=== PATIENT | female | born 1930 | race Caucasian/White ===

== ENCOUNTER 2017-04-11 16:06 | Inpatient (IN) | payer MEDICARE, MEDICAID ==
[2017-04-11] VITALS (7 sets, daily range): BP systolic 106–144; BP diastolic 51–74
[~2017-04-11] VITALS: Ht 162.6 cm; Wt 87.1 kg
[2017-04-11] MEDS ORDERED: Ipratropium 0.02% Inh Soln 2.5ml UD HHN ONE (16:30)
[2017-04-11] MEDS ORDERED: Azithromycin 500 MG in NS 275 ML IV ONE (16:30)
[2017-04-11] MEDS ORDERED: PredniSONE 20mg tab ORAL ONE (16:30)
[2017-04-11 16:51] LABS: ABG ALLEN TEST POSITIVE; ABG BASE EXCESS 2.5; ABG PCO2 58.3 mmHg (35.0-45.0)
[2017-04-11] MEDS: Albuterol ud Inhalation HHN SCH ×3 (16:55→18:25)
[2017-04-11] MEDS ORDERED: Azithromycin Inj IV ONE (17:14)
[2017-04-11 17:24] LABS: BASOPHILS % (AUTO) 1.4 % (0.0-2.0); EOSINOPHILS % (AUTO) 3.5 % (0.0-3.0); LYMPHOCYTES % (AUTO) 18.1 % (20.0-45.0); MEAN CORPUSCULAR HEMOGLOBIN 32.3 PG (27.0-31.0); MEAN CORPUSCULAR VOLUME 98 FL (80-99); MONOCYTES % (AUTO) 6.1 % (1.0-10.0); PLATELET COUNT 168 K/UL (150-450); RED BLOOD COUNT 4.19 M/UL (4.20-5.40); RED CELL DISTRIBUTION WIDTH 14.3 % (11.6-14.8); WHITE BLOOD COUNT 7.3 K/UL (4.8-10.8)
--- NOTE | 2017-04-11 17:24 | Emergency Room Report ---
History of Present Illness General Chief Complaint: Dyspnea/Respdistress Source: Patient, Family Member, PMD Present Illness HPI This patient has a history of pulmonary fibrosis. She is oxygen dependent at home intermittently. She was sent in by her primary care physician Dr. Lamb. She had been seen at the clinic there and was hypoxemic. She was also intermittently tachycardic. Patient has a history of atrial fibrillation. She is also developed some lower extremity edema. She underwent an echocardiogram and bilateral lower extremity ultrasounds which were unremarkable. She has been short of breath and requiring home oxygen much more often. There has been no fever or chills. No cough or congestion. No new symptoms. Allergies: Coded Allergies: No Known Allergies (Unverified , 04/11/17) Patient History Past Medical History: see triage record, AFib, other - pulmonary fibrosis Social History: Denies: alcohol use, drug use, smoking Reviewed Nursing Documentation: PMH: Agreed, PSxH: Agreed Nursing Documentation-PMH Past Medical History: No History, Except For Review of Systems All Other Systems: negative except mentioned in HPI Physical Exam Vital Signs Date Time Temp Pulse Resp B/P Pulse Ox O2 Delivery O2 Flow Rate FiO2 04/11/17 16:19 98.1 115 24 144/74 91 Nasal Cannula 4.0 Sp02 EP Interpretation: reviewed, normal General Appearance: no apparent distress, alert, GCS 15, non-toxic Head: normocephalic, atraumatic Eyes: bilateral eye PERRL, bilateral eye normal inspection ENT: hearing grossly normal, normal pharynx, no angioedema, normal voice Neck: full range of motion, supple/symm/no masses Respiratory: chest non-tender, lungs clear, normal breath sounds, no respiratory distress, no retraction, no accessory muscle use, speaking full sentences Cardiovascular #1: no edema, tachycardia, irregularly irregular Gastrointestinal: normal bowel sounds, non tender, soft, non-distended, no guarding, no rebound Rectal: deferred Musculoskeletal: back normal, gait/station normal, normal range of motion, non- tender, swelling - 1+pitting edema BLE Neurologic: alert, oriented x3, responsive, motor strength/tone normal, sensory intact, speech normal Psychiatric: judgement/insight normal, memory normal, mood/affect normal, no suicidal/homicidal ideation Skin: normal color, no rash, warm/dry, well hydrated Medical Decision Making Diagnostic Impression: Primary Impression: Pulmonary fibrosis Additional Impression: Hypoxemia ER Course This patient has known pulmonary fibrosis. She has worsening hypoxemia. She is requiring oxygen and normally does not. She was given an albuterol nebulizer treatment. She will be admitted for further pulmonary hygiene, further evaluation and treatment. The patient declined further albuterol nebulizer treatments other than the first one. She does not like having a mask on. She did have intermittent atrial fibrillation with rapid ventricular response. This was primarily after the albuterol nebulizer treatment. She was admitted to telemetry. Labs Test 04/11/17 16:21 04/11/17 17:00 Arterial Blood pH 7.328 (7.350-7.450) Arterial Blood Partial Pressure CO2 58.3 mmHg (35.0-45.0) Arterial Blood Partial Pressure O2 64.0 mmHg (75.0-100.0) Arterial Blood HCO3 29.9 mmol/L (22.0-26.0) Arterial Blood Oxygen Saturation 88.9 % (92.0-98.0) Arterial Blood Base Excess 2.5 Rohit Test Positive White Blood Count 7.3 K/UL (4.8-10.8) Red Blood Count 4.19 M/UL (4.20-5.40) Hemoglobin 13.6 G/DL (12.0-16.0) Hematocrit 41.1 % (37.0-47.0) Mean Corpuscular Volume 98 FL (80-99) Mean Corpuscular Hemoglobin 32.3 PG (27.0-31.0) Mean Corpuscular Hemoglobin Concent 33.0 G/DL (32.0-36.0) Red Cell Distribution Width 14.3 % (11.6-14.8) Platelet Count 168 K/UL (150-450) Mean Platelet Volume 7.0 FL (6.5-10.1) Neutrophils (%) (Auto) 71.0 % (45.0-75.0) Lymphocytes (%) (Auto) 18.1 % (20.0-45.0) Monocytes (%) (Auto) 6.1 % (1.0-10.0) Eosinophils (%) (Auto) 3.5 % (0.0-3.0) Basophils (%) (Auto) 1.4 % (0.0-2.0) Sodium Level 140 mEQ/L (135-145) Potassium Level 4.1 mEQ/L (3.4-4.9) Chloride Level 101 mEQ/L (98-107) Carbon Dioxide Level 30 mEQ/L (20-30) Anion Gap 9 (5-15) Blood Urea Nitrogen 12 mg/dL (7-23) Creatinine 0.8 mg/dL (0.5-0.9) Estimat Glomerular Filtration Rate mL/min (>60) Glucose Level 162 mg/dL (74-106) Calcium Level 8.7 mg/dL (8.6-10.2) Total Bilirubin 0.6 mg/dL (0.0-1.2) Aspartate Amino Transf (AST/SGOT) 22 U/L (5-40) Alanine Aminotransferase (ALT/SGPT) 15 U/L (3-33) Alkaline Phosphatase 39 U/L (35-104) Troponin I < 0.30 ng/mL (<=0.30) Total Protein 6.6 g/dL (6.6-8.7) Albumin 3.8 g/dL (3.5-5.2) Globulin 2.8 g/dL Albumin/Globulin Ratio 1.3 (1.0-2.7) EKG Diagnostic Results Rate: tachycardiac Rhythm: other ST Segments: no acute changes Other Impression Atrial fibrillation Rhythm Strip Diag. Results EP Interpretation: yes Rate: 100's Rhythm: no PVC's, no ectopy, other Other Impression A.fib Chest X-Ray Diagnostic Results Chest X-Ray Diagnostic Results : Chest X-Ray Ordered: Yes # of Views/Limited/Complete: 1 View Indication: Shortness of Breath EP Interpretation: Yes Interpretation: no pneumothorax, other Impression: Other Interpreting ER Provider: Diffuse opacities similar to previous CXR Last Vital Signs Date Time Temp Pulse Resp B/P Pulse Ox O2 Delivery O2 Flow Rate FiO2 04/11/17 16:19 98.1 115 24 144/74 91 Nasal Cannula 4.0 Disposition: ADMITTED INPATIENT Condition: Serious Referrals: SRINIVAS LAMB (PCP) NAOMI MARROQUIN D.O. Apr 11, 2017 17:24
[2017-04-11 17:32] LABS: ALANINE AMINOTRANSFERASE 15 U/L (3-33); ALBUMIN/GLOBULIN RATIO 1.3 (1.0-2.7); ANION GAP 9 (5-15); ASPARTATE AMINO TRANSFERASE 22 U/L (5-40); CALCIUM 8.7 mg/dL (8.6-10.2); CARBON DIOXIDE 30 mEQ/L (20-30); CHLORIDE 101 mEQ/L (98-107); CREATININE 0.8 mg/dL (0.5-0.9); HEMOLYSIS 6; POTASSIUM 4.1 mEQ/L (3.4-4.9); SODIUM 140 mEQ/L (135-145); TOTAL PROTEIN 6.6 g/dL (6.6-8.7); TROPONIN I < 0.30 ng/mL (<=0.30)
--- NOTE | 2017-04-11 17:33 | Consultation ---
Consult Note Consult Note History of Present Illness Hx. Source: patient Primary complaint: FOLLOW UP Duration: several weeks Trend of sx: worsening Fever: none Treatment: see med list Trend of Tx: no notable change Additional HPI: 86 year old female patient presents today for follow up appointment for worsening hypoxemia. Patient reports severe shortness of breath - more than baseline. Also concerned about edema of her feet and ankles. Patient is taking her prescribed medications as directed and is compliant. son denies any changes. no new medications at present. no cough or sputum production Active Medications (reviewed today): PROAIR HFA 108 (90 BASE) MCG/ACT INH AERS (ALBUTEROL SULFATE) inhale 2 puffs by mouth bid VITAMIN D (ERGOCALCIFEROL) 51569 UNIT ORAL CAPS (ERGOCALCIFEROL) 1 tab Qweekly MAALOX MAX SUSP (ALUM & MAG HYDROXIDE-SIMETH SUSP) take 15ml by mouth BID LASIX 40 MG ORAL TABS (FUROSEMIDE) one tab EOD LOVAZA CAPS (LJYCE-1-RNZD ETHYL ESTERS CAPS) take 2 tabs PO BID LINZESS 290 MCG ORAL CAPS (LINACLOTIDE) Take one tablet daily QAM KLOR-CON 8 MEQ ORAL CR-TABS (POTASSIUM CHLORIDE) 1 tab EOD JANUMET 50-1000 MG ORAL TABS (SITAGLIPTIN-METFORMIN HCL) Take one tablet two times daily 5-MTHF 1 MG ORAL CAPS (LEVOMEFOLIC ACID) Take one tablet daily BACLOFEN 10 MG ORAL TABS (BACLOFEN) Take one tablet daily AMARYL 2 MG ORAL TABS (GLIMEPIRIDE) Take one tablet three times daily AZELASTINE HCL 0.1 % NASAL SOLN (AZELASTINE HCL) 2 puffs in each nostril bid BROVANA 15 MCG/2ML INH NEBU (ARFORMOTEROL TARTRATE) inhailation bid BUDESONIDE 0.5 MG/2ML SUSP (BUDESONIDE) two times per day PROTONIX 40 MG EC TAB (PANTOPRAZOLE SODIUM) 1 by mouth daily ADEMPAS 2.5 MG ORAL TABS (RIOCIGUAT) Take one tablet three times daily OPSUMIT 10 MG TABS (MACITENTAN) one tablet daily LOSARTAN POTASSIUM 100 MG TABS (LOSARTAN POTASSIUM) one tab in morning BYSTOLIC 10 MG TABS (NEBIVOLOL HCL) one tab yazan night LEVOTHYROXINE SODIUM 100 MCG TABS (LEVOTHYROXINE SODIUM) 1 tab qd ACETAMINOPHEN-CODEINE #3 300-30 MG TABS (ACETAMINOPHEN-CODEINE) 1 tab qid prn DEXILANT 60 MG CPDR (DEXLANSOPRAZOLE) 1 daily REQUIP 0.5 MG TABS (ROPINIROLE HCL) 1 tab qd NAMENDA 5 MG TABS (MEMANTINE HCL) 1 tab bid NITROSTAT 0.4 MG SUBL (NITROGLYCERIN) 1 SL every 5 min as needed for chest pain , max 3 doses per episode SINGULAIR 10 MG TAB (MONTELUKAST SODIUM) 1 by mouth nightly at bedtime GLUCOPHAGE 500 MG TABS (METFORMIN HCL) Take one tablet daily Current Allergies (reviewed today): No known allergies Past History Past Medical History (reviewed - no changes required): diabetes hypertension arthritis bronchiectasis pulmonary fibrosis pulmonary hypertension, Emphysema obstructive sleep apnea Surgical History (reviewed - no changes required): Left foot big toe surgery Family History (reviewed - no changes required): Father is . Mother is . Social History (reviewed - no changes required): She lives alone in [place]. She has 1 child. She is of [place] descent and is retired. She has no pets. Risk Factors: Smoked Tobacco Use: Never smoker Smokeless Tobacco Use: Never Passive smoke exposure: no Drug use: no HIV high-risk behavior: no Caffeine use: 2 drinks per day Alcohol use: no Seatbelt use: 100 % Sun Exposure: occasionally Review of Systems General: weakness, dizziness, fatigue-resolved Eyes: denies blurring, diplopia, irritation, discharge, vision loss, eye pain, photophobia Ear/Nose/Throat: post nasal drip Cardiovascular: worsening edema Respiratory: See HPI- worsening hypoxemia cough Musculoskeletal: arthritis Date Time Temp Pulse Resp B/P Pulse Ox O2 Delivery O2 Flow Rate FiO2 04/11/17 17:22 125 30 94 Nasal Cannula 2.0 04/11/17 17:00 98.1 109 22 144/74 97 Nasal Cannula 2.0 04/11/17 17:00 109 22 Nasal Cannula 2.0 04/11/17 16:57 92 17 90 Nasal Cannula 2.0 04/11/17 16:57 92 17 Nasal Cannula 2.0 04/11/17 16:19 98.1 115 24 144/74 91 Nasal Cannula 4.0 Laboratory Tests Test 04/11/17 16:21 04/11/17 17:00 Arterial Blood pH 7.328 (7.350-7.450) Arterial Blood Partial Pressure CO2 58.3 mmHg (35.0-45.0) *H Arterial Blood Partial Pressure O2 64.0 mmHg (75.0-100.0) L Arterial Blood HCO3 29.9 mmol/L (22.0-26.0) H Arterial Blood Oxygen Saturation 88.9 % (92.0-98.0) L Arterial Blood Base Excess 2.5 Rohit Test Positive White Blood Count 7.3 K/UL (4.8-10.8) Red Blood Count 4.19 M/UL (4.20-5.40) L Hemoglobin 13.6 G/DL (12.0-16.0) Hematocrit 41.1 % (37.0-47.0) Mean Corpuscular Volume 98 FL (80-99) Mean Corpuscular Hemoglobin 32.3 PG (27.0-31.0) H Mean Corpuscular Hemoglobin Concent 33.0 G/DL (32.0-36.0) Red Cell Distribution Width 14.3 % (11.6-14.8) Platelet Count 168 K/UL (150-450) Mean Platelet Volume 7.0 FL (6.5-10.1) Neutrophils (%) (Auto) 71.0 % (45.0-75.0) Lymphocytes (%) (Auto) 18.1 % (20.0-45.0) L Monocytes (%) (Auto) 6.1 % (1.0-10.0) Eosinophils (%) (Auto) 3.5 % (0.0-3.0) H Basophils (%) (Auto) 1.4 % (0.0-2.0) Sodium Level Pending Potassium Level Pending Chloride Level Pending Carbon Dioxide Level Pending Blood Urea Nitrogen Pending Creatinine Pending Estimat Glomerular Filtration Rate Pending Glucose Level Pending Calcium Level Pending Total Bilirubin Pending Aspartate Amino Transf (AST/SGOT) Pending Alanine Aminotransferase (ALT/SGPT) Pending Alkaline Phosphatase Pending Troponin I Pending Pro-B-Type Natriuretic Peptide Pending Total Protein Pending Albumin Pending Globulin Pending Physical Exam General Appearance: well nourished, well hydrated, no acute distress Respiratory Respiratory Effort: no intercostal retractions or use of accessory muscles Palpation: normal fremitus Auscultation: crackles at both bases with reduced air entry Cardiovascular Palpation: no thrill or palpable murmurs, no displacement of PMI Auscultation: S1, S2, no murmur, rub, or gallop tachy RR Carotid arteries: pulses 2+, symmetric, no bruits Peripheral Circulation: no cyanosis, clubbing, or varicosities significant edema Musculoskeletal Gait and Station: normal and alert stable [Lab Results Review] Assessment Status of Existing Problems: Assessed Bronchiectasis as comment only - Assessed Asthma as comment only Assessed Emphysema as comment only Assessed HYPOXEMIA as comment only Assessed Interstitial lung disease as comment only Assessed Leg edema, bilateral as deteriorated Plan Additional Plan Comments: SIGNIFICANT CHANGE IN HYPOXEMIA AND MENTAL STATUS ECHO WITHOUT SIGNIFICANT CHANGE- COMPLETED IN OFFICE ECG TO ASSESS WITH NOTED SINUS TACHYCARDIA CHECK LABS AND BNP AND DIURES NEGATIVE VENOUS US WITH WORSENING LEG EDEMA IN OFFICE HOSPITALIZE FOR FURTHER INTERVENTION IV LASIX BIPAP MONITOR ABG D/W SON IN DETAIL SRINIVAS RODAS Apr 11, 2017 17:33
[2017-04-11] MEDS ORDERED: Diltiazem 25mg/5ml IV ONE (17:45)
[2017-04-11] MEDS ORDERED: JANUMET 50-1,01 EACH ORAL (18:41)
[2017-04-11] MEDS ORDERED: OMEGA 3 1,0001 EACH PO (18:41)
[2017-04-11] MEDS ORDERED: GLIMEPIRIDE2 MG ORAL (18:41)
[2017-04-11] MEDS ORDERED: POTASSIUM CHLOR8 ME2 PO (18:41)
[2017-04-11] MEDS ORDERED: FUROSEMIDE40 MG ORAL (18:41)
[2017-04-11] MEDS ORDERED: LIORESAL20 MG ORAL (18:41)
[2017-04-11] MEDS ORDERED: FOLIC ACID0.4 MG ORAL (18:41)
[2017-04-11] MEDS ORDERED: BYSTOLIC5 MG ORAL (18:41)
[2017-04-11 18:45] LABS: APPEARANCE,URINE CLEAR; KETONES,URINE NEGATIVE (NEGATIVE); LEUKOCYTE ESTERASE ,URINE 3+ (NEGATIVE); NITRITE,URINE NEGATIVE (NEGATIVE); PH,URINE 5 (4.5-8.0); PROTEIN,URINE 2+ (NEGATIVE); UROBILINOGEN,URINE 4 MG/DL (0.0-1.0)
[2017-04-11 18:56] LABS: BACTERIA,URINE FEW /HPF; RBC,URINE 0-2 /HPF (0 - 2); SQUAMOUS EPITHELIAL CELL,UR OCCASIONAL /LPF (NONE/OCC)
[2017-04-11 18:57] LABS: ICTOTEST NEGATIVE
[2017-04-11] MEDS ORDERED: LORazepam Inj 2mg/ml 1ml IV ONE (19:45)
[2017-04-11 20:07] LABS: ABG ALLEN TEST POSITIVE; ABG BASE EXCESS -0.1; ABG PCO2 60.3 mmHg (35.0-45.0)
[2017-04-12 04:00] VITALS: BP 113/86
[2017-04-12 05:19] LABS: BASOPHILS % (AUTO) 0.4 % (0.0-2.0); EOSINOPHILS % (AUTO) 0.1 % (0.0-3.0); LYMPHOCYTES % (AUTO) 13.1 % (20.0-45.0); MEAN CORPUSCULAR HEMOGLOBIN 31.1 PG (27.0-31.0); MEAN CORPUSCULAR HGB CONC 30.9 G/DL (32.0-36.0); MEAN CORPUSCULAR VOLUME 101 FL (80-99); MONOCYTES % (AUTO) 2.5 % (1.0-10.0); NEUTROPHILS % (AUTO) 83.9 % (45.0-75.0); PLATELET COUNT 175 K/UL (150-450); RED BLOOD COUNT 4.32 M/UL (4.20-5.40); RED CELL DISTRIBUTION WIDTH 14.5 % (11.6-14.8); WHITE BLOOD COUNT 3.9 K/UL (4.8-10.8)
[2017-04-12 05:39] LABS: ANION GAP 14 (5-15); CALCIUM 9.1 mg/dL (8.6-10.2); CARBON DIOXIDE 29 mEQ/L (20-30); CHLORIDE 101 mEQ/L (98-107); CREATININE 0.8 mg/dL (0.5-0.9); HEMOLYSIS 1; POTASSIUM 4.4 mEQ/L (3.4-4.9); SODIUM 144 mEQ/L (135-145)
[2017-04-12] MEDS: NovoLOG Insulin Flexpen SUBQ SCH ×7 (06:41→20:14)
[2017-04-12 07:46] LABS: ABG ALLEN TEST POSITIVE; ABG BASE EXCESS 3.2; ABG PCO2 64.8 mmHg (35.0-45.0)
[2017-04-12 08:00] VITALS: BP 126/68
--- NOTE | 2017-04-12 08:00 | Pulmonology Progress Note ---
Assessment/Plan Assessment/Plan Bronchiectasis Pulmonary fibrosis Respiratory failure hypercapnia hypoxemia possible pulmonary edema Hypertension sinus tachycardia pulmonary hypertension PLAN care noted IV lasix respiratory care BIPAP home meds supportive care oxygen therapy prognosis guarded Subjective Allergies: Coded Allergies: No Known Allergies (Unverified , 04/11/17) Subjective withdrawn on BIPAP desats off d/w son Objective Last 24 Hour Vital Signs Date Time Temp Pulse Resp B/P Pulse Ox O2 Delivery O2 Flow Rate FiO2 04/12/17 07:30 126 21 96 Facial 50 04/12/17 06:00 117 04/12/17 05:16 115 21 97 Facial 50 04/12/17 04:00 97.9 110 35 113/86 97 Bi-pap 50 04/12/17 04:00 30 04/12/17 03:07 105 21 96 Facial 40 04/12/17 01:17 112 22 94 Facial 40 04/12/17 01:00 40 04/12/17 00:46 98 20 109/66 96 Bi-pap 96 04/11/17 23:23 101 20 94 Facial 40 04/11/17 23:00 98.6 113 20 106/64 94 Bi-pap 40 04/11/17 22:01 40 04/11/17 22:00 118 19 120/65 94 Bi-pap 40 04/11/17 21:58 116 19 95 Facial 40 04/11/17 21:00 110 19 127/63 97 Bi-pap 50 04/11/17 20:00 108 19 118/58 95 Bi-pap 50 04/11/17 19:40 110 32 95 Nasal Cannula 2.0 04/11/17 19:37 110 35 94 Facial 60 04/11/17 19:00 102 25 138/71 97 Bi-pap 50 04/11/17 18:21 50 04/11/17 18:02 109 144/75 04/11/17 18:00 88 20 107/51 92 Nasal Cannula 2.0 04/11/17 17:40 113 32 94 Nasal Cannula 2.0 04/11/17 17:22 125 30 94 Nasal Cannula 2.0 04/11/17 17:00 98.1 109 22 144/74 97 Nasal Cannula 2.0 04/11/17 17:00 109 22 Nasal Cannula 2.0 04/11/17 16:57 92 17 90 Nasal Cannula 2.0 04/11/17 16:57 92 17 Nasal Cannula 2.0 04/11/17 16:19 98.1 115 24 144/74 91 Nasal Cannula 4.0 Intake and Output 04/11/17 04/12/17 19:00 07:00 Output Total 1500 ml Balance -1500 ml Output Urine Total 1500 ml # Voids 1 Objective WDWN NAD withdrawn reduced breath sounds bilaterally basilar crackles [id number] without RG; systolic murmur NABS nontender no HSM no CC; improved edema nonfocal Laboratory Tests 04/11/17 16:21: Arterial Blood pH 7.328L, Arterial Blood Partial Pressure CO2 58.3*H, Arterial Blood Partial Pressure O2 64.0L, Arterial Blood HCO3 29.9H, Arterial Blood Oxygen Saturation 88.9L, Arterial Blood Base Excess 2.5, Rohit Test Positive 04/11/17 17:00: White Blood Count 7.3, Red Blood Count 4.19L, Hemoglobin 13.6, Hematocrit 41.1, Mean Corpuscular Volume 98, Mean Corpuscular Hemoglobin 32.3H, Mean Corpuscular Hemoglobin Concent 33.0, Red Cell Distribution Width 14.3, Platelet Count 168, Mean Platelet Volume 7.0, Neutrophils (%) (Auto) 71.0, Lymphocytes (%) (Auto) 18.1L, Monocytes (%) (Auto) 6.1, Eosinophils (%) (Auto) 3.5H, Basophils (%) ( Auto) 1.4, Sodium Level 140, Potassium Level 4.1, Chloride Level 101, Carbon Dioxide Level 30, Anion Gap 9, Blood Urea Nitrogen 12, Creatinine 0.8, Estimat Glomerular Filtration Rate , Glucose Level 162H, Calcium Level 8.7, Total Bilirubin 0.6, Aspartate Amino Transf (AST/SGOT) 22, Alanine Aminotransferase ( ALT/SGPT) 15, Alkaline Phosphatase 39, Troponin I < 0.30, Pro-B-Type Natriuretic Peptide 2125H, Total Protein 6.6, Albumin 3.8, Globulin 2.8, Albumin /Globulin Ratio 1.3 04/11/17 18:15: Urine Color Brown, Urine Appearance Clear, Urine pH 5, Urine Specific [place] 1.025, Urine Protein 2+H, Urine Glucose (UA) Negative, Urine Ketones Negative, Urine Occult Blood Negative, Urine Nitrite Negative, Urine Bilirubin 1+H, Urine Ictotest Negative, Urine Urobilinogen 4H, Urine Leukocyte Esterase 3+H, Urine RBC 0-2, Urine WBC 5-10H, Urine Squamous Epithelial Cells Occasional, Urine Bacteria Few 04/11/17 18:22: Arterial Blood pH 7.283L, Arterial Blood Partial Pressure CO2 60.3*H, Arterial Blood Partial Pressure O2 71.7L, Arterial Blood HCO3 27.9H, Arterial Blood Oxygen Saturation 93.0, Arterial Blood Base Excess -0.1, Rohit Test Positive 04/12/17 04:00: Arterial Blood pH 7.304L, Arterial Blood Partial Pressure CO2 64.8*H, Arterial Blood Partial Pressure O2 106.2H, Arterial Blood HCO3 31.5H, Arterial Blood Oxygen Saturation 97.3, Arterial Blood Base Excess 3.2, Rohit Test Positive 04/12/17 04:05: White Blood Count 3.9L, Red Blood Count 4.32, Hemoglobin 13.5, Hematocrit 43.6, Mean Corpuscular Volume 101H, Mean Corpuscular Hemoglobin 31.1H, Mean Corpuscular Hemoglobin Concent 30.9L, Red Cell Distribution Width 14.5, Platelet Count 175, Mean Platelet Volume 7.0, Neutrophils (%) (Auto) 83.9H, Lymphocytes (%) (Auto) 13.1L, Monocytes (%) (Auto) 2.5, Eosinophils (%) (Auto) 0.1, Basophils (%) (Auto) 0.4, Sodium Level 144, Potassium Level 4.4, Chloride Level 101, Carbon Dioxide Level 29, Anion Gap 14, Blood Urea Nitrogen 12, Creatinine 0.8, Estimat Glomerular Filtration Rate , Glucose Level 251H, Calcium Level 9.1 Current Medications Medications (Trade) Dose Ordered Sig/Vick Route PRN Reason Start Time Stop Time Status Last Admin Dose Admin Dextrose (Dextrose 50%) STAT PRN IV Hypoglycemia 04/11/17 20:00 05/11/17 19:59 Furosemide (Lasix) 40 mg Q12HR IV 04/12/17 09:00 05/12/17 08:59 Heparin Sodium (Porcine) (Heparin 5000 units/ml) 5,000 units EVERY 12 HOURS SUBQ 04/12/17 09:00 05/12/17 08:59 Insulin Aspart (NovoLOG) BEFORE MEALS AND HS SUBQ 04/12/17 06:30 05/12/17 06:29 04/12/17 06:42 Insulin Aspart (NovoLOG) 1 units NOVOTIAC SUBQ 04/12/17 06:30 05/12/17 06:29 04/12/17 06:41 Patient Own Medication (Patient's Own Med) 1 ea DAILY ORAL 04/12/17 09:00 05/12/17 08:59 UNV Patient Own Medication (Patient's Own Med) 1 ea THREE TIMES A DAY ORAL 04/12/17 09:00 05/12/17 08:59 UNV Potassium Chloride (K-Dur) 10 meq BID ORAL 04/12/17 06:30 05/12/17 06:29 Ranitidine HCl (Zantac) 150 mg DAILY ORAL 04/12/17 09:00 05/12/17 08:59 SRINIVAS RODAS Apr 12, 2017 08:00
[2017-04-12] MEDS ORDERED: ADEMPAS 2.5 MG ORAL SCH ×2 (09:00→09:39)
[2017-04-12] MEDS ORDERED: OPSUMIT 10 MG ORAL SCH ×2 (09:00→09:40)
--- NOTE | 2017-04-12 09:27 | Diagnostic Imaging Report ---
Indication: Dyspnea Comparison: 05/06/16 A single view chest radiograph was obtained. Findings: Pulmonary vascular prominence, hazy vessel margins and interstitial densities with cardiomegaly demonstrated. Findings not dissimilar from 05/06/16. Bones are osteopenic. Impression: Evidence of congestive heart failure/interstitial edema. There is likely a chronic component to the interstitial disease i.e. fibrosis
[2017-04-12] MEDS: Heparin 5000 units/ml inj SUBQ SCH ×2 (09:58→20:17)
[2017-04-12] MEDS: ADEMPAS 2.5 MG ORAL SCH ×3 (10:52→17:42)
[2017-04-12] MEDS: OPSUMIT 10 MG ORAL SCH (10:52)
--- NOTE | 2017-04-12 11:01 | History and Physical Report ---
DATE OF ADMISSION: 04/11/2017 CHIEF COMPLAINT: Shortness of breath and respiratory failure. HISTORY OF PRESENT ILLNESS: This is a pleasant 86-year-old female. She has a history of pulmonary hypertension, pulmonary fibrosis, congestive heart failure, and diabetes. She presented from home with complaints of progressive shortness of breath for the last one to two weeks. According to the patient's family, she is able to be doing well until several weeks prior to admission. She has had worsening hypoxemia and shortness of breath. Previously, she did not require oxygen when ambulating, but now has been increasingly hypoxic and short of breath. In her palm and back forger office, her saturations were in the 60s and she has now been directly admitted. There were no reports of any fever or chills. She has had mild nonproductive cough. Denies any ill contacts. There are no reports of any chest pain or heart palpitations. PAST MEDICAL HISTORY: Significant for history of hypertension, osteoarthritis, bronchiectasis, and sleep apnea. PAST SURGICAL HISTORY: Includes foot surgery. CURRENT MEDICATIONS: Reconciled and reviewed. ALLERGIES: None. FAMILY HISTORY: Noncontributory. SOCIAL HISTORY: Negative for tobacco, ethanol, or drugs. REVIEW OF SYSTEMS: General: No fever or chills. HEENT: No headaches or visual changes. Cardiopulmonary: No chest pain. Positive shortness of breath. Mild nonproductive dry cough. Gastrointestinal: No nausea or vomiting. Genitourinary: No dysuria or frequency. Muscular: No muscular pain or swelling. Neurologic: No evidence of seizures. PHYSICAL EXAMINATION: GENERAL: The patient is a chronically ill-appearing female, currently on BiPAP. She is awake, but is clearly dyspneic. Family is at the bedside. VITAL SIGNS: Temperature 98 degrees, pulse 126, respirations 21, and blood pressure 113/86. NECK: Supple. There is no jugular venous distention. HEART: Regular rate and rhythm. LUNGS: Significant for scattered wheezes. ABDOMEN: Soft, nontender, and nondistended. EXTREMITIES: Without clubbing, cyanosis, or edema. LABORATORY DATA: White count was 7, hemoglobin 13, hematocrit 41, and platelets of 168,000. ABG showed a pH of 7.328, pCO2 of 58, pO2 of 64, bicarbonate of 29, and O2 saturation 88%. Sodium is 144, potassium 4.4, and creatinine was 0.8. UA showed 5 to 10 WBCs. Chest x-ray shows diffuse extensive interstitial disease similar to prior exams. ASSESSMENT: This is an unfortunate female with history of severe pulmonary hypertension and pulmonary fibrosis with complaints of respiratory failure. 1. Respiratory failure. 2. Pulmonary hypertension. 3. Pulmonary fibrosis. 4. Diabetes. 5. Hypertensive heart disease. PLAN: Intravenous diuretic therapy. Respiratory treatments. Antibiotics. Continue steroid trial. Continue BiPAP. Monitor blood gases. Pulmonary consultation is obtained. The patient's status is currently . Sloan Larsen M.D. DR: FAIZAN JOB#: [id number] CC:
--- NOTE | 2017-04-12 11:24 | Physician Query ---
PLEASE COMPLETE THE DOCUMENT BEFORE SIGNING Dear __SRINIVAS LAMB___ Date: ___04/12/2017____ Color Making Supervisor/CDS Name: KileyRadhaliliaelgin/ARIEL____ Color Making Supervisor / CDS Phone #____[phone]____ Exercise your independent professional judgment when responding to query. Question asked do not imply a particular answer is desired/expected Clinical Documentation States:(Documented in Dr. Lamb's Consultation note) Hx Of present illness: Patient reports severe shortness of breath- more than baseline. Also concerned about edema of her feet and ankles. Past History: hypertension, pulmonary hypertension, Clinical Findings Show: BNP __2125 pg/ml , Diuretic Furosemide 40 mg IV Chest X-Ray : Findings: Pulmonary vascular prominence, hazy vessel margins and interstitial densities with cardiomegaly demonstrated. Impression: Evidence of congestive heart failure/interstitial edema. Please Clarify: Acuity [] Acute [] Chronic [x] Acute on Chronic Type [] Systolic [x] Diastolic [] Systolic & Diastolic (Combined) [] Left Heart failure [] Other: Etiology [x] CHF due to Hypertension [] Cardiomyopathy [] Valvular Heart Disease [] Coronary Artery Disease [] Unable to determine [] Other: Condition Present on Admission: [x] Yes [] No []Clinically Undeterminable Please also document in your Progress Notes and/or Discharge Summary and indicate if the condition was present on admission. SRINIVAS LAMB M.D. Date & Time [facility]
[2017-04-12 12:00] VITALS: BP 120/65
--- NOTE | 2017-04-12 13:30 | Diagnostic Imaging Report ---
Indication: Dyspnea Comparison: 04/11/17 A single view chest radiograph was obtained. Findings: Moderate interstitial opacities are present with prominent pulmonary vascularity and heart size. Findings consistent with interstitial edema/CHF. Bones are osteopenic. Aorta is calcified. Impression: CHF not significant changed from 2 hours earlier
[2017-04-12 16:00] VITALS: BP 105/55
[2017-04-12 20:00] VITALS: BP 109/62
[2017-04-13] VITALS (7 sets, daily range): BP systolic 106–149; BP diastolic 55–79
[2017-04-13] MEDS: NovoLOG Insulin Flexpen SUBQ SCH ×7 (06:26→21:19)
[2017-04-13] MEDS: OPSUMIT 10 MG ORAL SCH (08:53)
[2017-04-13] MEDS: ADEMPAS 2.5 MG ORAL SCH ×3 (08:53→17:23)
[2017-04-13] MEDS: Heparin 5000 units/ml inj SUBQ SCH ×2 (08:54→21:17)
--- NOTE | 2017-04-13 09:11 | Pulmonology Progress Note ---
Assessment/Plan Assessment/Plan Bronchiectasis Pulmonary fibrosis Respiratory failure hypercapnia hypoxemia possible pulmonary edema Hypertension sinus tachycardia pulmonary hypertension PLAN care noted IV lasix as is respiratory care BIPAP QHS and PRN home meds supportive care oxygen therapy prognosis guarded monitor side effects for fluid retention d/w son dc soon impression, plan, and exam edited and reviewed in detail care discussed with RN Subjective Allergies: Coded Allergies: No Known Allergies (Unverified , 04/11/17) Subjective much improved off BIPAP oxygen improved d/w son Objective Last 24 Hour Vital Signs Date Time Temp Pulse Resp B/P Pulse Ox O2 Delivery O2 Flow Rate FiO2 04/13/17 08:00 40 04/13/17 07:59 Nasal Cannula 4.0 04/13/17 07:58 95 Nasal Cannula 4.0 04/13/17 07:51 97.2 83 19 149/79 97 Bi-pap 40 04/13/17 04:00 40 04/13/17 04:00 86 04/13/17 04:00 97.9 89 20 110/65 92 Nasal Cannula 5.0 04/13/17 03:35 92 4.0 04/13/17 01:30 107 22 95 Facial 40 04/13/17 00:00 92 04/13/17 00:00 98.3 89 18 106/69 92 Nasal Cannula 5.0 04/13/17 00:00 40 04/12/17 22:46 120 34 95 Facial 40 04/12/17 20:00 100 04/12/17 20:00 2.0 04/12/17 20:00 98.1 92 18 109/62 92 Nasal Cannula 5.0 04/12/17 19:30 105 20 92 4.0 04/12/17 19:30 Nasal Cannula 4.0 36 04/12/17 19:30 92 Nasal Cannula 4.0 36 04/12/17 16:44 89 19 92 4.0 04/12/17 16:00 2.0 04/12/17 16:00 98 04/12/17 16:00 98.2 88 18 105/55 92 Nasal Cannula 5.0 04/12/17 15:22 96 18 95 4.0 04/12/17 13:26 106 19 94 4.0 04/12/17 12:00 97.2 106 20 120/65 94 Nasal Cannula 5.0 04/12/17 12:00 108 04/12/17 12:00 2.0 04/12/17 11:22 123 21 95 4.0 Intake and Output 04/12/17 04/13/17 19:00 07:00 Output Total 1726 ml Balance -1726 ml Output Urine Total 1726 ml # Voids 6 # Bowel Movements 2 Objective WDWN NAD improved breath sounds bilaterally basilar crackles [id number] without RG; systolic murmur NABS nontender no HSM no CC; minimal residual edema nonfocal alert Microbiology Date/Time Source Procedure Growth Status 04/11/17 17:05 Blood Blood Culture - Preliminary NO GROWTH AFTER 24 HOURS Resulted 04/11/17 17:00 Blood Blood Culture - Preliminary NO GROWTH AFTER 24 HOURS Resulted Current Medications Medications (Trade) Dose Ordered Sig/Vick Route PRN Reason Start Time Stop Time Status Last Admin Dose Admin Dextrose (Dextrose 50%) STAT PRN IV Hypoglycemia 04/11/17 20:00 05/11/17 19:59 Furosemide (Lasix) 40 mg Q12HR IV 04/12/17 09:00 05/12/17 08:59 04/13/17 08:53 Heparin Sodium (Porcine) (Heparin 5000 units/ml) 5,000 units EVERY 12 HOURS SUBQ 04/12/17 09:00 05/12/17 08:59 04/13/17 08:54 Insulin Aspart (NovoLOG) BEFORE MEALS AND HS SUBQ 04/12/17 06:30 05/12/17 06:29 04/13/17 06:26 Insulin Aspart (NovoLOG) 1 units NOVOTIAC SUBQ 04/12/17 06:30 05/12/17 06:29 04/13/17 06:27 Patient Own Medication (Patient's Own Med) 1 ea DAILY ORAL 04/12/17 10:45 05/12/17 10:44 04/13/17 08:53 Patient Own Medication (Patient's Own Med) 1 ea THREE TIMES A DAY ORAL 04/12/17 10:45 05/12/17 10:44 04/13/17 08:53 Potassium Chloride (K-Dur) 10 meq BID ORAL 04/12/17 06:30 05/12/17 06:29 04/13/17 08:59 Ranitidine HCl (Zantac) 150 mg DAILY ORAL 04/12/17 09:00 05/12/17 08:59 04/13/17 08:53 SRINIVAS RODAS Apr 13, 2017 09:11
--- NOTE | 2017-04-13 09:11 | General Progress Note ---
Assessment/Plan Problem List: (1) Respiratory failure ICD Codes: J96.90 - Respiratory failure, unspecified, unspecified whether with hypoxia or hypercapnia SNOMED: 084576488 (2) CHF NYHA class I ICD Codes: I50.9 - Heart failure, unspecified SNOMED: 23668575, 533733077 (3) Pulmonary fibrosis ICD Codes: J84.10 - Pulmonary fibrosis, unspecified SNOMED: 00311988 (4) Hypoxemia ICD Codes: R09.02 - Hypoxemia SNOMED: 752796084 Status: stable, not improved Subjective ROS Limited/Unobtainable: No Constitutional: Reports: malaise, weakness HEENT: Reports: no symptoms Cardiovascular: Reports: no symptoms Respiratory: Reports: SOB at rest, cough, shortness of breath Gastrointestinal/Abdominal: Reports: no symptoms Genitourinary: Reports: no symptoms Neurologic/Psychiatric: Reports: no symptoms Endocrine: Reports: no symptoms Hematologic/Lymphatic: Reports: no symptoms Allergies: Coded Allergies: No Known Allergies (Unverified , 04/11/17) All Systems: reviewed and negative except above Subjective no real change. remain sob at rest. on and off bipap last night. no chest pain. d/.w son at the bedside. Objective Last 24 Hour Vital Signs Date Time Temp Pulse Resp B/P Pulse Ox O2 Delivery O2 Flow Rate FiO2 04/13/17 08:00 40 04/13/17 07:59 Nasal Cannula 4.0 04/13/17 07:58 95 Nasal Cannula 4.0 04/13/17 07:51 97.2 83 19 149/79 97 Bi-pap 40 04/13/17 04:00 40 04/13/17 04:00 86 04/13/17 04:00 97.9 89 20 110/65 92 Nasal Cannula 5.0 04/13/17 03:35 92 4.0 04/13/17 01:30 107 22 95 Facial 40 04/13/17 00:00 92 04/13/17 00:00 98.3 89 18 106/69 92 Nasal Cannula 5.0 04/13/17 00:00 40 04/12/17 22:46 120 34 95 Facial 40 04/12/17 20:00 100 04/12/17 20:00 2.0 04/12/17 20:00 98.1 92 18 109/62 92 Nasal Cannula 5.0 04/12/17 19:30 105 20 92 4.0 04/12/17 19:30 Nasal Cannula 4.0 36 04/12/17 19:30 92 Nasal Cannula 4.0 36 04/12/17 16:44 89 19 92 4.0 04/12/17 16:00 2.0 04/12/17 16:00 98 04/12/17 16:00 98.2 88 18 105/55 92 Nasal Cannula 5.0 04/12/17 15:22 96 18 95 4.0 04/12/17 13:26 106 19 94 4.0 04/12/17 12:00 97.2 106 20 120/65 94 Nasal Cannula 5.0 04/12/17 12:00 108 04/12/17 12:00 2.0 04/12/17 11:22 123 21 95 4.0 04/12/17 09:06 112 23 96 4.0 Intake and Output 04/12/17 04/13/17 19:00 07:00 Output Total 1726 ml Balance -1726 ml Output Urine Total 1726 ml # Voids 6 # Bowel Movements 2 Height (Feet): 5 Height (Inches): 4.00 Weight (Pounds): 192 General Appearance: WD/WN, alert, mild distress Neck: non-tender, normal alignment, supple Cardiovascular: normal rate, regular rhythm Respiratory/Chest: chest wall non-tender, lungs clear, normal breath sounds Abdomen: normal bowel sounds, non tender, soft, no organomegaly Edema: trace edema Neurologic: quebracho tanner II-XII grossly normal, no motor/sensory deficits, alert, responsive, normal mood/affect Skin: normal pigmentation JOY NEVAREZ Apr 13, 2017 09:11
[2017-04-13 09:16] LABS: ABG PCO2 78.1 mmHg (35.0-45.0)
[2017-04-13 09:17] LABS: ABG ALLEN TEST POSITIVE
[2017-04-13 10:56] LABS: ALANINE AMINOTRANSFERASE 20 U/L (3-33); ALBUMIN/GLOBULIN RATIO 1.5 (1.0-2.7); ANION GAP 6 (5-15); ASPARTATE AMINO TRANSFERASE 23 U/L (5-40); CALCIUM 9.3 mg/dL (8.6-10.2); CHLORIDE 95 mEQ/L (98-107); HEMOLYSIS 4; MAGNESIUM 1.7 mg/dL (1.7-2.5); SODIUM 143 mEQ/L (135-145); TOTAL PROTEIN 6.6 g/dL (6.6-8.7)
[2017-04-13 11:01] LABS: CARBON DIOXIDE 42 mEQ/L (20-30)
--- NOTE | 2017-04-13 12:55 | Diagnostic Imaging Report ---
Indication: SOB Technique: One view of the chest Comparison: 04/11/2017 Findings: Again demonstrated are bilateral Interstitial and alveolar parenchymal opacities. Possibly slightly improved, but apparent improvement may just be an artifact of improved exposure technique on the current study. Heart size upper limits of normal. Pleural spaces remain clear Impression: Bilateral diffuse interstitial and alveolar parenchymal disease, stable or perhaps minimally improved over 2 days.
[2017-04-14 04:00] VITALS: BP 113/59
[2017-04-14 05:25] LABS: ANION GAP 9 (5-15); CALCIUM 9.5 mg/dL (8.6-10.2); CARBON DIOXIDE 37 mEQ/L (20-30); CHLORIDE 94 mEQ/L (98-107); HEMOLYSIS 7; POTASSIUM 3.7 mEQ/L (3.4-4.9); SODIUM 140 mEQ/L (135-145)
[2017-04-14] MEDS: NovoLOG Insulin Flexpen SUBQ SCH ×6 (06:19→16:46)
--- NOTE | 2017-04-14 08:04 | Pulmonology Progress Note ---
Assessment/Plan Assessment/Plan Bronchiectasis Pulmonary fibrosis Respiratory failure hypercapnia hypoxemia possible pulmonary edema Hypertension sinus tachycardia pulmonary hypertension PLAN care noted IV lasix as is respiratory care BIPAP QHS and PRN home meds supportive care oxygen therapy prognosis guarded monitor side effects for fluid retention d/w son dc home or SNF; son to decide impression, plan, and exam edited and reviewed in detail care discussed with RN Subjective Allergies: Coded Allergies: No Known Allergies (Unverified , 04/11/17) Subjective continues to improve off BIPAP oxygen improved now on 2 liters d/w son Objective Last 24 Hour Vital Signs Date Time Temp Pulse Resp B/P Pulse Ox O2 Delivery O2 Flow Rate FiO2 04/14/17 07:13 91 Nasal Cannula 2.0 28 04/14/17 07:13 Nasal Cannula 2.0 28 04/14/17 04:36 89 95 2.0 28 04/14/17 04:00 97.9 62 20 113/59 94 Nasal Cannula 3.0 04/14/17 04:00 40 04/14/17 04:00 93 04/14/17 03:32 85 16 94 Facial 40 04/14/17 00:53 71 19 95 Facial 40 04/14/17 00:00 40 04/14/17 00:00 97 04/13/17 23:52 97.5 92 20 131/71 92 Nasal Cannula 3.0 04/13/17 23:05 48 22 98 Facial 40 04/13/17 21:43 74 24 97 40 04/13/17 20:20 Nasal Cannula 2.0 28 04/13/17 20:19 93 Nasal Cannula 2.0 28 04/13/17 20:00 109 04/13/17 20:00 40 04/13/17 19:41 97.7 86 20 108/55 95 Nasal Cannula 3.0 04/13/17 16:45 20 91 Nasal Cannula 2.0 04/13/17 16:22 3.0 04/13/17 16:17 98.2 83 20 124/59 94 Nasal Cannula 3.0 04/13/17 16:00 86 04/13/17 13:00 21 96 Nasal Cannula 3.0 04/13/17 12:00 84 04/13/17 11:58 19 92 Nasal Cannula 3.0 04/13/17 11:56 93 Nasal Cannula 3.0 04/13/17 11:54 98.4 80 20 114/68 91 Nasal Cannula 2.0 Intake and Output 04/13/17 04/14/17 19:00 07:00 Intake Total 540 ml Output Total 700 ml 650 ml Balance -160 ml -650 ml Intake Oral 540 ml Output Urine Total 700 ml 650 ml # Voids 3 4 Objective WDWN NAD EOMI stable breath sounds bilaterally basilar crackles [id number] without RG; systolic murmur NABS nontender no HSM no CC; minimal residual edema- trace at present nonfocal alert and back to baseline Microbiology Date/Time Source Procedure Growth Status 04/11/17 17:05 Blood Blood Culture - Preliminary NO GROWTH AFTER 48 HOURS Resulted 04/11/17 17:00 Blood Blood Culture - Preliminary NO GROWTH AFTER 48 HOURS Resulted Laboratory Tests 04/13/17 09:00: Arterial Blood pH 7.362, Arterial Blood Partial Pressure CO2 78.1*H, Arterial Blood Partial Pressure O2 88.1, Arterial Blood HCO3 43.3H, Arterial Blood Oxygen Saturation 96.0, Arterial Blood Base Excess 14.0, Rohit Test Positive 04/13/17 10:15: Sodium Level 143, Potassium Level 4.0, Chloride Level 95L, Carbon Dioxide Level 42*H, Anion Gap 6, Blood Urea Nitrogen 17, Creatinine 1.0H, Estimat Glomerular Filtration Rate , Glucose Level 191H, Calcium Level 9.3, Magnesium Level 1.7, Total Bilirubin 0.6, Aspartate Amino Transf (AST/SGOT) 23, Alanine Aminotransferase (ALT/SGPT) 20, Alkaline Phosphatase 42, Pro-B-Type Natriuretic Peptide 2763H, Total Protein 6.6, Albumin 4.0, Globulin 2.6, Albumin/Globulin Ratio 1.5 04/14/17 03:10: Sodium Level 140, Potassium Level 3.7, Chloride Level 94L, Carbon Dioxide Level 37H, Anion Gap 9, Blood Urea Nitrogen 18, Creatinine 1.0H, Estimat Glomerular Filtration Rate , Glucose Level 144H, Calcium Level 9.5, Pro-B-Type Natriuretic Peptide 2427H Current Medications Medications (Trade) Dose Ordered Sig/Vick Route PRN Reason Start Time Stop Time Status Last Admin Dose Admin Acetazolamide (Diamox) 250 mg TWICE A DAY ORAL 04/13/17 18:00 05/13/17 17:59 04/13/17 17:22 Dextrose (Dextrose 50%) STAT PRN IV Hypoglycemia 7/10/17 20:00 05/11/17 19:59 Furosemide (Lasix) 40 mg Q12HR IV 04/12/17 09:00 05/12/17 08:59 04/13/17 21:14 Heparin Sodium (Porcine) (Heparin 5000 units/ml) 5,000 units EVERY 12 HOURS SUBQ 04/12/17 09:00 05/12/17 08:59 04/13/17 21:17 Insulin Aspart (NovoLOG) BEFORE MEALS AND HS SUBQ 04/12/17 06:30 05/12/17 06:29 04/14/17 06:19 Insulin Aspart (NovoLOG) 1 units NOVOTIAC SUBQ 04/12/17 06:30 05/12/17 06:29 04/14/17 06:20 Patient Own Medication (Patient's Own Med) 1 ea DAILY ORAL 04/12/17 10:45 05/12/17 10:44 04/13/17 08:53 Patient Own Medication (Patient's Own Med) 1 ea THREE TIMES A DAY ORAL 04/12/17 10:45 05/12/17 10:44 04/13/17 17:23 Potassium Chloride (K-Dur) 10 meq BID ORAL 04/12/17 06:30 05/12/17 06:29 04/13/17 17:22 Ranitidine HCl (Zantac) 150 mg DAILY ORAL 04/12/17 09:00 05/12/17 08:59 04/13/17 08:53 SRINIVAS RODAS Apr 14, 2017 08:04
[2017-04-14 08:10] VITALS: BP 108/70
[2017-04-14] MEDS: OPSUMIT 10 MG ORAL SCH (08:59)
[2017-04-14] MEDS: ADEMPAS 2.5 MG ORAL SCH ×2 (08:59→13:00)
[2017-04-14] MEDS: Heparin 5000 units/ml inj SUBQ SCH (08:59)
[2017-04-14 09:21] LABS: ABG PCO2 62.3 mmHg (35.0-45.0)
[2017-04-14 09:22] LABS: ABG BASE EXCESS 13.1
[2017-04-14 12:03] VITALS: BP 100/49
--- NOTE | 2017-04-14 14:24 | General Progress Note ---
Assessment/Plan Problem List: (1) Respiratory failure ICD Codes: J96.90 - Respiratory failure, unspecified, unspecified whether with hypoxia or hypercapnia SNOMED: 562797038 (2) CHF NYHA class I ICD Codes: I50.9 - Heart failure, unspecified SNOMED: 68344691, 046154569 (3) Pulmonary fibrosis ICD Codes: J84.10 - Pulmonary fibrosis, unspecified SNOMED: 05274663 (4) Hypoxemia ICD Codes: R09.02 - Hypoxemia SNOMED: 857690750 Status: stable, progressing Assessment/Plan cont resp rx diuresis bipap as needed o2 as needed pulm noted may need snf Subjective ROS Limited/Unobtainable: No Constitutional: Reports: malaise, weakness HEENT: Reports: no symptoms Cardiovascular: Reports: no symptoms Respiratory: Reports: cough, shortness of breath, sputum Gastrointestinal/Abdominal: Reports: no symptoms Genitourinary: Reports: no symptoms Neurologic/Psychiatric: Reports: no symptoms Endocrine: Reports: no symptoms Hematologic/Lymphatic: Reports: anemia Allergies: Coded Allergies: No Known Allergies (Unverified , 04/11/17) All Systems: reviewed and negative except above Subjective no real change. remain sob at rest. on and off bipap last night. no chest pain. d/.w son at the bedside. currently off bipap. seems less sob. son thinks pt may need ecf Objective Last 24 Hour Vital Signs Date Time Temp Pulse Resp B/P Pulse Ox O2 Delivery O2 Flow Rate FiO2 04/14/17 12:03 97.9 91 20 100/49 92 Nasal Cannula 3.0 04/14/17 12:00 83 04/14/17 08:10 97.9 99 20 108/70 92 Nasal Cannula 3.0 04/14/17 08:00 85 04/14/17 07:13 91 Nasal Cannula 2.0 28 04/14/17 07:13 Nasal Cannula 2.0 28 04/14/17 04:36 89 95 2.0 28 04/14/17 04:00 97.9 62 20 113/59 94 Nasal Cannula 3.0 04/14/17 04:00 40 04/14/17 04:00 93 04/14/17 03:32 85 16 94 Facial 40 04/14/17 00:53 71 19 95 Facial 40 04/14/17 00:00 40 04/14/17 00:00 97 04/13/17 23:52 97.5 92 20 131/71 92 Nasal Cannula 3.0 04/13/17 23:05 48 22 98 Facial 40 04/13/17 21:43 74 24 97 40 04/13/17 20:20 Nasal Cannula 2.0 28 04/13/17 20:19 93 Nasal Cannula 2.0 28 04/13/17 20:00 109 04/13/17 20:00 40 04/13/17 19:41 97.7 86 20 108/55 95 Nasal Cannula 3.0 04/13/17 16:45 20 91 Nasal Cannula 2.0 04/13/17 16:22 3.0 04/13/17 16:17 98.2 83 20 124/59 94 Nasal Cannula 3.0 04/13/17 16:00 86 Intake and Output 04/13/17 04/14/17 19:00 07:00 Intake Total 540 ml Output Total 700 ml 650 ml Balance -160 ml -650 ml Intake Oral 540 ml Output Urine Total 700 ml 650 ml # Voids 3 4 Laboratory Tests 04/14/17 03:10: Sodium Level 140, Potassium Level 3.7, Chloride Level 94L, Carbon Dioxide Level 37H, Anion Gap 9, Blood Urea Nitrogen 18, Creatinine 1.0H, Estimat Glomerular Filtration Rate , Glucose Level 144H, Calcium Level 9.5, Pro-B-Type Natriuretic Peptide 2427H 04/14/17 09:10: Arterial Blood pH 7.430, Arterial Blood Partial Pressure CO2 62.3*H, Arterial Blood Partial Pressure O2 64.0L, Arterial Blood HCO3 41.0H, Arterial Blood Oxygen Saturation 91.0L, Arterial Blood Base Excess 13.1, Rohit Test Height (Feet): 5 Height (Inches): 4.00 Weight (Pounds): 192 Objective General Appearance: WD/WN, alert, mild distress Neck: non-tender, normal alignment, supple Cardiovascular: normal rate, regular rhythm Respiratory/Chest: chest wall non-tender, bilateral rales at bases Abdomen: normal bowel sounds, non tender, soft, no organomegaly Edema: trace edema Neurologic: enrollment management manager II-XII grossly normal, no motor/sensory deficits, alert, responsive, normal mood/affect Skin: normal pigmentation JOY NEVAREZ Apr 14, 2017 14:24
[2017-04-14 16:00] VITALS: BP 103/48
--- NOTE | 2017-04-15 11:31 | Discharge Summary ---
Discharge Summary Hospital Course Date of Admission Apr 11, 2017 at 16:59 Date of Discharge Apr 14, 2017 at 19:25 Admitting Diagnosis pulmonary fibrosis, hypoxemia HPI Antonina Gray is a 86 year old female who was admitted on Apr 11, 2017 at 16:59 for Pulmonary Fibrosis/Hypoxemia Hospital Course [id number] Discharge Discharge Disposition Patient was discharged to SNF/Subacute Facility(03) Discharge Diagnoses: Radha Mercado NP Apr 15, 2017 11:31
--- NOTE | 2017-04-16 03:30 | Discharge Summary 2 SIG ---
DATE OF ADMISSION: 04/11/2017 DATE OF DISCHARGE: 04/14/2017 CONSULTANTS: Sloan Larsen M.D. BRIEF HOSPITAL COURSE: The patient is an 86-year-old female with history of pulmonary hypertension, pulmonary fibrosis, congestive heart failure, and diabetes, who presented from home with complaints of progressive shortness of breath for the last two to three weeks. She had worsening hypoxemia and shortness of breath and had become increasingly hypoxic and short of breath. She was seen in Dr. Lamb's office. O2 saturations were noted to be at low in the 60s. She was then advised to go to the ER for further evaluation. There was noted edema of the feet and ankle. In office, venous duplex done was negative for DVT. On evaluation at ED, she had intermittent atrial fibrillation with rapid ventricular response. She was given nebulizer therapy and ABG showed respiratory acidosis. Chest x-ray done showed no pneumothorax with diffuse opacities. She continued to be hypoxemic and was wheezing and had to be placed on a BiPAP. She was then admitted to [facility] for pulmonary fibrosis and hypoxemia with respiratory failure. She was continued on BiPAP and was given IV Lasix and supportive therapy. She was eventually weaned off BiPAP to bedtime and p.r.n. She was eventually discharged to SNF. FINAL DIAGNOSES: 1. Acute respiratory failure requiring BiPAP, resolved. 2. Acute on chronic diastolic congestive heart failure, present on admission. 3. Congestive heart failure due to hypertension. 4. Pulmonary fibrosis. 5. Hypercapnia. 6. Hypoxemia. 7. Possible pulmonary edema. 8. Hypertension. 9. Sinus tachycardia. 10. Pulmonary hypertension. Will Lamb M.D. I have been assigned to dictate discharge summary on this account and I was not involved in the patient's management. Radha Mercado N.P. DR: ANA JOB#: [id number] CC:
== END 2017-04-14 19:25 | DRG 291 ==
LOC: ENRESERVTM → ENRESERVDT → ENRESERV → EMR 16:30 → 2W 16:59 → EDBEDREQ 18:19 → 2W 04-13 05:46
PROC: 5A09357 Assistance with Respiratory Ventilation, Less than 24 Consecutive Hours, Continuous Positive Airway Pressure (ICD-10-PCS; principal; 2017-04-11)
DX: I11.0 Hypertensive heart disease with heart failure (principal); J96.01 Acute respiratory failure with hypoxia; J96.02 Acute respiratory failure with hypercapnia; I50.33 Acute on chronic diastolic (congestive) heart failure; I27.2 Other secondary pulmonary hypertension; E11.9 Type 2 diabetes mellitus without complications; J84.10 Pulmonary fibrosis, unspecified; R00.0 Tachycardia, unspecified; J47.9 Bronchiectasis, uncomplicated
CPT/HCPCS: 36415; 36600; 71010; 80048; 80053; 81003; 82803; 82962; 83735; 83880; 84484; 85025; 87040; 93005; 93970; 94640; 94660; 94664; 94760; J1815

== ENCOUNTER 2018-09-06 10:29 | Outpatient (CLI) | payer MEDICARE, MEDICAID ==
[~2018-09-06 10:29] MED LIST: BYSTOLIC5 MG ORAL; FOLIC ACID0.4 MG ORAL; FUROSEMIDE40 MG ORAL; GLIMEPIRIDE2 MG ORAL; JANUMET 50-1,01 EACH ORAL; LIORESAL20 MG ORAL; OMEGA 3 1,0001 EACH PO; POTASSIUM CHLOR8 ME2 PO
--- NOTE | 2018-09-06 15:08 | Diagnostic Imaging Report ---
Indication: Cough Technique: 2 views of the chest Comparison: 04/13/2017 single view chest Findings: Diffuse extensive bilateral mostly interstitial disease is again demonstrated, appears similar to the previous exam allowing for differences in exposure technique. The heart size is upper limits normal. Pleural spaces are clear. The bones are unremarkable Impression: Bilateral diffuse mostly interstitial disease. Similarity to multiple prior exam suggests significant chronic component, but superimposed acute disease certainly possible. Correlate with clinical findings.
== END 2018-09-06 12:29 | disposition home or self-care (01) ==
LOC: RAD 10:29
DX: J18.9 Pneumonia, unspecified organism (principal)
CPT/HCPCS: 71046